=== PATIENT | female | born 1940 | race Caucasian/White ===

== ENCOUNTER → 2017-05-15 | Outpatient (CLI) | payer OTHER ==
[~2017-05-15] MED LIST: ASPI81TA28 PO; LORA-741 PO; MULT-506 PO; PANT40TA PO; QUET1TAB32 PO; QUET1TAB91 PO; SERT1TAB92 PO
== END ==
LOC: C.LABUPBEA 10:07
PROVIDERS: ATTEND Nurse Practitioner Family
DX: Z87.828 Personal history of other (healed) physical injury and trauma (principal)

== ENCOUNTER → 2017-05-30 | Outpatient (CLI) | payer OTHER ==
[2017-05-30 10:19] LABS: URINE APPEARANCE TURBID (CLEAR); URINE BILIRUBIN NEG (NEG); URINE COLOR YELLOW; URINE NITRITE POS (NEG); URINE PH >= 9.0 (4.5-7.5); URINE SPECIFIC GRAVITY 1.019 (1.000-1.030); UROBILINOGEN NEG (NEG)
[2017-05-30 10:30] LABS: MANUAL MICROSCOPIC REQUIRED? NO; REVIEW REQ? NO; SULFASALICYLIC ACID POS (NEG)
== END ==
LOC: C.LABUPBEA 09:24
PROVIDERS: ATTEND Nurse Practitioner Family
DX: R82.5 Elevated urine levels of drugs, medicaments and biological substances (principal)

== ENCOUNTER → 2017-05-31 | Outpatient (CLI) | payer OTHER ==
[2017-05-31 09:08] LABS: HEMATOCRIT 39.4 % (37-47); MEAN CELL VOLUME 84.2 fL (80-100); MEAN CORPUSCULAR HEMOGLOBIN 28.2 pg (25-34); MEAN CORPUSCULAR HGB CONC 33.5 g/dl (32-36); MEAN PLATELET VOLUME 10.5 fL (7.4-10.4); PLATELET COUNT 256 K/uL (130-400); RED BLOOD COUNT 4.68 M/uL (4.2-5.4); WHITE BLOOD COUNT 6.57 K/uL (4.8-10.8)
[2017-05-31 09:18] LABS: ALT/SGPT 18 U/L (12-78); BLOOD UREA NITROGEN 22 mg/dl (7-18); BUN/CREATININE RATIO 34.5 (10-20); CALCIUM 9.2 mg/dl (8.5-10.1); CARBON DIOXIDE 25 mmol/L (21-32); CHLORIDE 109 mmol/L (98-107); CREATININE 0.65 mg/dl (0.60-1.20); GLUCOSE 100 mg/dl (70-99); POTASSIUM 3.8 mmol/L (3.5-5.1); SODIUM 141 mmol/L (136-145)
[2017-05-31 09:21] LABS: ALB/GLOB RATIO 1.2 (0.9-2); ALKALINE PHOSPHATASE 88 U/L (45-117); AST/SGOT 10 U/L (15-37)
== END ==
LOC: C.LABUPBEA 08:41
PROVIDERS: ATTEND Nurse Practitioner Family
DX: M62.81 Muscle weakness (generalized) (principal); Z85.828 Personal history of other malignant neoplasm of skin

== ENCOUNTER → 2018-01-22 | Outpatient (CLI) | payer OTHER ==
[2018-01-22 09:47] LABS: BASO % 0.8 %; BASO ABS # 0.05 K/uL (0-0.2); EOS % 3.4 %; EOS ABS # 0.22 K/uL (0-0.5); HEMATOCRIT 39.9 % (37-47); HEMOGLOBIN 13.6 g/dL (12.0-16.0); IG# 0.01 K/uL (0.00-0.02); LYMPH % 22.5 %; LYMPH ABS # 1.45 K/uL (1.2-3.4); MEAN CELL VOLUME 83.3 fL (80-100); MEAN CORPUSCULAR HEMOGLOBIN 28.4 pg (25-34); MEAN CORPUSCULAR HGB CONC 34.1 g/dl (32-36); MEAN PLATELET VOLUME 10.8 fL (7.4-10.4); MONO % 6.8 %; MONO ABS # 0.44 K/uL (0.11-0.59); NEUT % 66.3 %; NEUT ABS # 4.28 K/uL (1.4-6.5); PLATELET COUNT 212 K/uL (130-400); RED CELL DISTRIBUTION WIDTH CV 14.7 % (11.5-14.5); RED CELL DISTRIBUTION WIDTH SD 45.2 fL (36.4-46.3); WHITE BLOOD COUNT 6.45 K/uL (4.8-10.8)
[2018-01-22 10:22] LABS: CREATININE 0.72 mg/dl (0.60-1.20); GLUCOSE 97 mg/dl (70-99)
[2018-01-22 11:52] LABS: HEMOGLOBIN A1C 5.5 % (4.5-5.6)
[2018-01-22 12:27] LABS: ALBUMIN 3.3 gm/dl (3.4-5.0); ALKALINE PHOSPHATASE 111 U/L (45-117); ALT/SGPT 28 U/L (12-78); AST/SGOT 14 U/L (15-37); BLOOD UREA NITROGEN 24 mg/dl (7-18); CALCIUM 8.6 mg/dl (8.5-10.1); CARBON DIOXIDE 24 mmol/L (21-32); SODIUM 141 mmol/L (136-145); TOTAL PROTEIN 6.2 gm/dl (6.4-8.2)
== END ==
LOC: C.LABUPBEA 09:16
PROVIDERS: ATTEND Nurse Practitioner Family
DX: M62.81 Muscle weakness (generalized) (principal); M18.0 Bilateral primary osteoarthritis of first carpometacarpal joints

== ENCOUNTER → 2018-04-22 | Outpatient (CLI) | payer OTHER ==
[2018-04-22 10:12] LABS: ALBUMIN 3.1 gm/dl (3.4-5.0); ALKALINE PHOSPHATASE 114 U/L (45-117); ALT/SGPT 33 U/L (12-78); AST/SGOT 21 U/L (15-37); BLOOD UREA NITROGEN 20 mg/dl (7-18); CALCIUM 8.7 mg/dl (8.5-10.1); CARBON DIOXIDE 23 mmol/L (21-32); CREATININE 0.61 mg/dl (0.60-1.20); GLUCOSE 95 mg/dl (70-99); POTASSIUM 3.7 mmol/L (3.5-5.1); SODIUM 140 mmol/L (136-145)
== END ==
LOC: C.LABUPBEA 09:23
PROVIDERS: ATTEND Nurse Practitioner Family
DX: Z87.828 Personal history of other (healed) physical injury and trauma (principal)

== ENCOUNTER 2019-12-10 14:38 | Inpatient (IN) ==
[2019-12-10] MEDS ORDERED: SODIUM CHLORIDE 0.9% 1000ML 1,000 ML IV ONE (15:05)
--- NOTE | 2019-12-10 15:12 | Emergency Department Note ---
Impression & Plan Pulmonary embolism, Acute respiratory failure with hypoxia, Non-STEMI (non-ST elevated myocardial infarction), Syncope ED Provider Note Provider: Chris Baires MD DATE OF SERVICE: 12/10/2019 CHIEF COMPLAINT: Syncope HISTORY OF PRESENT ILLNESS: Patient is a 79-year-old female presenting via am bulance today with a past medical history of Alzheimer's disease, depression, osteoporosis, diverticulitis per review of the medical record after reported syncopal event today. Evidently this morning while bathing patient became quite pale reported by EMS as a syncopal event and with a left-sided facial droop. Upon arrival here patient's unable to provide significant history. Patient's later arrives and states he has not seen her in several weeks due to the lockdown at the facility with the viral outbreak. He does state the patient seems in her neurological mental status at baseline but is not normally on oxygen. REVIEW OF SYSTEMS: Limited secondary to mental status PAST MEDICAL HISTORY: As noted above MEDICATIONS: Reviewed nursing notes and [facility] medication administration records SOCIAL HISTORY: , lives in longterm facility PHYSICAL EXAM: GENERAL: alert to verbal stimuli, not following commands, nonsensical speech at times. Head: normocephalic and atraumatic EYES: No injection, discharge or icterus. PERRL, EOMI. NECK: Trachea midline. Supple. ENT: Mucous membranes pink and moist. LUNGS: Airway patent. No retractions. Breath sounds present bilaterally anteriorly, mildly tachypneic HEART: Tachycardic rate and regular rhythm. No chest wall tenderness ABDOMEN: Soft and non-tender, without guarding or rebound. SKIN: Acyanotic, warm, dry, without significant rash EXTREMITIES: Without swelling, tenderness or deformity NEUROLOGICAL: withdraws to pain in all 4 extremities. Do not grossly appreciate a facial droop. Does not follow commands. EKG: Sinus tachycardia rate of 110. No acute ST segment elevations notable with some baseline artifact. No PVC notable. In comparison to previous from July [id number] more tachycardic CONTINUOUS CARDIAC MONITORING: was ordered and showed a heart rate of 108 bpm in sinus tachycardia Patient's hypertension was referred to the hospitalist [facility] COURSE: 1455 Patient was first seen and H&P performed. 1510 See at bedside with now present. 1650 Patient reassessed and updated. [facility] hospitalist paged. Patient's laboratory studies and imaging reviewed. Differential includes Infection, dehydration, metabolic abnormality, hypo/hyperglycemia, electrolyte disturbance, anemia, hypoxia, cardiac sources, intracerebral event, toxicologic, neurologic, as well as other pathologies. IMPRESSION/MEDICAL DECISION MAKING: Patient presents with new significant oxygen requirement and 10-15 L nonrebreather. Single episode reported earlier. History of TIA reported by and reported left facial droop earlier. Very difficult to examine the patient due to her underlying dementia and lack of ability to follow commands. Do not grossly appreciate a facial droop but again it is hard to truly know. CT the head and CT angiograms of the head and neck were complete as well as the chest to exclude PE. EKG basic labs lactate and blood cultures were sent. Urinalysis was ordered. Could be infectious or metabolic as well. Influenza testing was sent. Patient mildly tachypneic and tachycardic. Did receive initial IV fluid bolus. Mild leukocytosis. Patient 's and pulsed indicates the patient would not want intubation or CPR. Patient has no travel risk factors are significant exposure risk factors for coronavirus at this time. Patient does have a history of traumatic it sounds like subdural hematoma several years ago. Head CT without acute intracranial bleed although some moderate increased dilation of the ventricles is noted. Patient's head and neck vascular size evidence of acute occlusion. CT of the chest however significantly shows a large saddle PE with extensive bilateral PEs noted with right heart strain. Doubt pneumonia with this finding. Patient does have a positive troponin -- likely heart strain 2/2 PE. Procalcitonin undetectable with negative flu believe this is less infectious and all related to possible PE. He does not mobilize very well and this could be secondary to that. Discussed with patient's who was present given her decreased cognitive status secondary to dementia. At this time after discussion of the risks and benefits of various therapies including TPA, heparin, and palliative options the patient would not want heroic or life saving measures such as TPA, CPR, or mechanical ventilation. We will proceed with heparinization for now to see if the patient rallies and will recover from this with additional support of oxygen. He () understood the risks that she could acutely decompensate and that this is a life threatening process. [facility] hospitalist was contacted. Patient's head CT findings can be addressed later if the patient acutely survives this large pulmonary embolism. DIAGNOSIS: Saddle pulmonary embolism, elevated troponin, hypoxia, acute respiratory failure DISPOSITION: Hospitalist will evaluate Patient was agreeable with this plan. Discussed return precautions and advised follow up. I have personally spent 33 minutes of critical care time in the direct management of this patient. This includes bedside care, interpretation of diagnostic studies, and testing, discussion with consultants, patient, and family members, and other required patient management activities. These 33 minutes is in excess of all separately billable procedures. Past Med/Surg History Medical History (Updated 12/10/19 @ 18:38 by Chris Baires M.D.) Alzheimer's disease (Chronic) Anxiety Depression (Chronic) Subdural hematoma, post-traumatic Surgical History (Updated 12/10/19 @ 18:03 by Negar Núñez PA-C) History of appendectomy (Chronic Unknown) "incidental " History of craniotomy Family History (Updated 12/10/19 @ 18:06 by Negar Núñez PA-C) Other Family history non-contributory Social History (Updated 12/10/19 @ 18:07 by Negar Núñez PA-C) Smoking Status: Never smoker Hx Alcohol Use: No Hx Substance Use: No Allergies Allergies Allergy/AdvReac Type Severity Reaction Status Date / Time Penicillins Allergy Unknown . Verified 12/10/19 15:40 tramadol AdvReac Intermediate UPSET Verified 12/10/19 15:40 STOMACH AND VOMITING donepezil AdvReac Unknown agitation Verified 12/10/19 15:40 / delirium memantine AdvReac Unknown delirium Verified 12/10/19 15:40 Home Meds Home Medications Medication Instructions Recorded Confirmed acetaminophen 650 mg PO Q6H PRN MDD 3 GMS 12/10/19 12/10/19 APAP/24 HOURS bisacodyl [Dulcolax (bisacodyl)] 10 mg OH DAILY PRN 12/10/19 12/10/19 chlorhexidine gluconate [Peridex] 5 ml BUCCAL BID 12/10/19 12/10/19 cholecalciferol (vitamin D3) 5,000 unit PO DAILY 12/10/19 12/10/19 [Vitamin D3] magnesium hydroxide [Milk Of 10 ml PO DAILY PRN 12/10/19 12/10/19 Magnesia Concentrated] mineral oil [Fleet Mineral Oil] 118 ml [place] DAILY PRN 12/10/19 12/10/19 [id number] 1 tab PO DAILY 12/10/19 12/10/19 [Therapeutic-M] omeprazole 20 mg PO Q2D 12/10/19 12/10/19 polyethylene glycol 3350 17 g PO Q24H PRN 12/10/19 12/10/19 potassium chloride 20 meq PO DAILY 12/10/19 12/10/19 sertraline 50 mg PO DAILY 12/10/19 12/10/19 Results & Data (ED) Vital Signs Vital Signs - 24 hr 12/10/19 14:48 12/10/19 14:52 12/10/19 14:58 Temperature 37.3 C Temperature Source Rectal Pulse Rate 106 H 112 H 105 H Pulse Rate from SpO2 Sensor 106 H 106 H Respiratory Rate 33 H 24 33 H Blood Pressure 101/67 101/67 Blood Pressure Mean 81 78 Pulse Oximetry 90 82 L 90 Oxygen Delivery Method Room Air Oxygen Flow Rate Sepsis Recent Fever Within 48 Hours No Sepsis New/Unexplained Change in Mental Status No Sepsis Action Taken by Nursing No Action Required 12/10/19 15:00 12/10/19 15:01 12/10/19 15:05 Temperature Temperature Source Pulse Rate 111 H 105 H Pulse Rate from SpO2 Sensor 109 H 104 H Respiratory Rate 33 H 31 H Blood Pressure 118/77 Blood Pressure Mean 87 Pulse Oximetry 90 91 91 Oxygen Delivery Method Non-rebreather Oxygen Flow Rate 10 Sepsis Recent Fever Within 48 Hours Sepsis New/Unexplained Change in Mental Status Sepsis Action Taken by Nursing 12/10/19 15:10 12/10/19 15:20 12/10/19 15:30 Temperature Temperature Source Pulse Rate 108 H 109 H 108 H Pulse Rate from SpO2 Sensor 110 H 108 H 108 H Respiratory Rate 25 H 29 H 31 H Blood Pressure Blood Pressure Mean Pulse Oximetry 90 88 L 92 Oxygen Delivery Method Oxygen Flow Rate Sepsis Recent Fever Within 48 Hours Sepsis New/Unexplained Change in Mental Status Sepsis Action Taken by Nursing 12/10/19 15:34 12/10/19 15:40 12/10/19 15:50 Temperature Temperature Source Pulse Rate 105 H 105 H 105 H Pulse Rate from SpO2 Sensor 105 H 106 H 105 H Respiratory Rate 30 H 30 H 33 H Blood Pressure 119/49 L Blood Pressure Mean 93 Pulse Oximetry 91 90 90 Oxygen Delivery Method Non-rebreather Oxygen Flow Rate Sepsis Recent Fever Within 48 Hours Sepsis New/Unexplained Change in Mental Status Sepsis Action Taken by Nursing 12/10/19 16:00 12/10/19 16:21 12/10/19 16:30 Temperature Temperature Source Pulse Rate 112 H 190 H Pulse Rate from SpO2 Sensor 106 H 102 H 104 H Respiratory Rate 29 H 26 H 26 H Blood Pressure 120/91 Blood Pressure Mean 97 Pulse Oximetry 90 90 96 Oxygen Delivery Method Non-rebreather Oxygen Flow Rate 15 Sepsis Recent Fever Within 48 Hours Sepsis New/Unexplained Change in Mental Status Sepsis Action Taken by Nursing 12/10/19 16:31 12/10/19 16:40 12/10/19 16:50 Temperature Temperature Source Pulse Rate 152 H 105 H 105 H Pulse Rate from SpO2 Sensor 103 H 105 H 106 H Respiratory Rate 27 H 26 H 30 H Blood Pressure Blood Pressure Mean Pulse Oximetry 95 95 94 Oxygen Delivery Method Oxygen Flow Rate Sepsis Recent Fever Within 48 Hours Sepsis New/Unexplained Change in Mental Status Sepsis Action Taken by Nursing 12/10/19 17:00 12/10/19 17:01 12/10/19 17:10 Temperature Temperature Source Pulse Rate 106 H 107 H 106 H Pulse Rate from SpO2 Sensor 109 H 107 H 107 H Respiratory Rate 24 22 25 H Blood Pressure 107/78 Blood Pressure Mean 86 Pulse Oximetry 95 95 96 Oxygen Delivery Method Oxygen Flow Rate Sepsis Recent Fever Within 48 Hours Sepsis New/Unexplained Change in Mental Status Sepsis Action Taken by Nursing 12/10/19 17:20 12/10/19 17:30 12/10/19 17:40 Temperature Temperature Source Pulse Rate 108 H 110 H 109 H Pulse Rate from SpO2 Sensor 108 H 110 H 110 H Respiratory Rate 25 H 24 18 Blood Pressure 108/79 Blood Pressure Mean 88 Pulse Oximetry 96 96 95 Oxygen Delivery Method Non-rebreather Oxygen Flow Rate 15 Sepsis Recent Fever Within 48 Hours Sepsis New/Unexplained Change in Mental Status Sepsis Action Taken by Nursing 12/10/19 17:50 12/10/19 18:12 Temperature Temperature Source Pulse Rate 108 H Pulse Rate from SpO2 Sensor 109 H Respiratory Rate 25 H Blood Pressure Blood Pressure Mean Pulse Oximetry 96 Oxygen Delivery Method Non-rebreather Oxygen Flow Rate 15 Sepsis Recent Fever Within 48 Hours Sepsis New/Unexplained Change in Mental Status Sepsis Action Taken by Nursing Laboratory Data Result diagrams: 12/10/19 15:23 12/10/19 15:23 Lab Results 12/10/19 12/10/19 12/10/19 Range/Units 15:23 15:23 15:23 WBC 11.55 H (4.8-10.8) K/uL RBC 5.37 (4.2-5.4) M/uL Hgb 16.0 (12.0-16.0) g/dL Hct 46.9 (37-47) % MCV 87.3 (80-100) fL MCH 29.8 (25-34) pg MCHC 34.1 (32-36) g/dL RDW Std Deviation 45.7 (36.4-46.3) fL RDW Coeff of Yaw 14.3 (11.5-14.5) % Plt Count 240 (130-400) K/uL MPV 10.8 H (7.4-10.4) fL Immature Gran % (Auto) 0.3 % Neut % (Auto) 85.3 % Lymph % (Auto) 6.8 % [place] % (Auto) 6.4 % Eos % (Auto) 0.9 % Baso % (Auto) 0.3 % Immature Gran # (Auto) 0.03 H (0.00-0.02) K/uL Neut # (Auto) 9.86 H (1.4-6.5) K/uL Lymph # (Auto) 0.78 L (1.2-3.4) K/uL [place] # (Auto) 0.74 H (0.11-0.59) K/uL Eos # (Auto) 0.10 (0-0.5) K/uL Baso # (Auto) 0.04 (0-0.2) K/uL PT 11.0 (9.0-12.0) Seconds INR 1.0 (0.9-1.1) APTT 29.1 (21.0-31.0) Seconds PTT Ratio 1.0 Sodium 142 (136-145) mmol/L Potassium 4.1 (3.5-5.1) mmol/L Chloride 110 H (98-107) mmol/L Carbon Dioxide 30 (21-32) mmol/L Anion Gap 2.0 L (3-11) BUN 26 H (7-18) mg/dl Creatinine 0.72 (0.6-1.2) mg/dl Est Cr Clr Drug Dosing Not Reportable Est GFR ( Amer) 91.7 Est GFR (Non-Af Amer) 79.1 BUN/Creatinine Ratio 36.5 H (10-20) Glucose 144 H (70-99) mg/dl Lactate (0.4-2.0) mmol/L Calcium 9.8 (8.5-10.1) mg/dl Magnesium 2.2 (1.8-2.4) mg/dl Total Bilirubin 0.6 (0.2-1) mg/dl AST 18 (15-37) U/L ALT 33 (12-78) U/L Alkaline Phosphatase 122 H (45-117) U/L Troponin I 0.664 H* (0-0.045) ng/ml NT-Pro-B Natriuret Pep 141 (0-1800) pg/ml Total Protein 7.1 (6.4-8.2) gm/dl Albumin 3.5 (3.4-5.0) gm/dl Globulin 3.6 (2.5-4.0) gm/dl Albumin/Globulin Ratio 1.0 (0.9-2) Lipase 79 (73-393) U/L Procalcitonin (0-0.5) ng/ml TSH 2.180 (0.300-4.500) uIu/ml Influenza Type A (PCR) (Neg) Influenza Type B (PCR) (Neg) 12/10/19 12/10/19 12/10/19 Range/Units 15:23 15:27 15:30 WBC (4.8-10.8) K/uL RBC (4.2-5.4) M/uL Hgb (12.0-16.0) g/dL Hct (37-47) % MCV (80-100) fL MCH (25-34) pg MCHC (32-36) g/dL RDW Std Deviation (36.4-46.3) fL RDW Coeff of Yaw (11.5-14.5) % Plt Count (130-400) K/uL MPV (7.4-10.4) fL Immature Gran % (Auto) % Neut % (Auto) % Lymph % (Auto) % [place] % (Auto) % Eos % (Auto) % Baso % (Auto) % Immature Gran # (Auto) (0.00-0.02) K/uL Neut # (Auto) (1.4-6.5) K/uL Lymph # (Auto) (1.2-3.4) K/uL [place] # (Auto) (0.11-0.59) K/uL Eos # (Auto) (0-0.5) K/uL Baso # (Auto) (0-0.2) K/uL PT (9.0-12.0) Seconds INR (0.9-1.1) APTT (21.0-31.0) Seconds PTT Ratio Sodium (136-145) mmol/L Potassium (3.5-5.1) mmol/L Chloride (98-107) mmol/L Carbon Dioxide (21-32) mmol/L Anion Gap (3-11) BUN (7-18) mg/dl Creatinine (0.6-1.2) mg/dl Est Cr Clr Drug Dosing Est GFR ( Amer) Est GFR (Non-Af Amer) BUN/Creatinine Ratio (10-20) Glucose (70-99) mg/dl Lactate 2.0 (0.4-2.0) mmol/L Calcium (8.5-10.1) mg/dl Magnesium (1.8-2.4) mg/dl Total Bilirubin (0.2-1) mg/dl AST (15-37) U/L ALT (12-78) U/L Alkaline Phosphatase (45-117) U/L Troponin I (0-0.045) ng/ml NT-Pro-B Natriuret Pep (0-1800) pg/ml Total Protein (6.4-8.2) gm/dl Albumin (3.4-5.0) gm/dl Globulin (2.5-4.0) gm/dl Albumin/Globulin Ratio (0.9-2) Lipase (73-393) U/L Procalcitonin < 0.05 (0-0.5) ng/ml TSH (0.300-4.500) uIu/ml Influenza Type A (PCR) Neg for Influ A (Neg) Influenza Type B (PCR) Neg for Influ B (Neg) Administered Medications Heparin Sodium/Dextrose (Heparin Sodium/Dextrose) 25,000 units in 500 mls @ 26 mls/hr IV .[id number] [facility]; Protocol Stop: 01/09/20 16:59 Last Admin: 12/10/19 17:22 Dose: 1,300 units/hr, 26 mls/hr Documented by: [id number] Cosigned by: [id number] Ioversol (Optiray 320 125ml) 120 ml IV ONCE PRN PRN Reason: Interaction Checking Stop: 12/14/19 16:09 Last Admin: 12/10/19 16:11 Dose: 120 ml Documented by: [id number] Discontinued Medications Heparin Sodium (Porcine) (Heparin Iv Bolus) Confirm Administered Dose 10,000 units .ROUTE .STK-MED ONE Stop: 12/10/19 17:15 Last Admin: 12/10/19 17:20 Dose: 6,000 units Documented by: [id number] Cosigned by: [id number] Heparin Sodium/Dextrose () 1 ea IV NOW STA; Protocol Stop: 12/10/19 16:54 Last Admin: 12/10/19 17:23 Dose: Not Given Documented by: [id number] Sodium Chloride (Nss 1000ml) 1,000 mls @ 999 mls/hr IV .[id number] ONE Stop: 12/10/19 16:05 Last Infusion: 12/10/19 17:23 Dose: 0 mls/hr Documented by: [id number] Admin: 12/10/19 15:44 Dose: 999 mls/hr Documented by: [id number] Morphine Sulfate (Morphine Sulfate) 1 mg IV NOW STA Stop: 12/10/19 17:54 Last Admin: 12/10/19 17:57 Dose: 1 mg Documented by: [id number] Discharge Plan Visit Data Chief Complaint: Syncope ED Provider: Chris Baires Discharge Problem: Pulmonary embolism, Acute respiratory failure with hypoxia, Non-STEMI (non-ST elevated myocardial infarction), Syncope Patient Disposition: Being Evaluated by Hospitalist Condition: Serious Discharge Instructions Interventions: ED Discharge Assessment Last Done: 12/10/19 18:12
[2019-12-10 15:37] LABS: Basophils # (auto) 0.04 K/uL (0-0.2); Basophils % (auto) 0.3 %; Eosinophils % (auto) 0.9 %; Hematocrit (blood only) 46.9 % (37-47); Immature Granulocytes # (auto) 0.03 K/uL (0.00-0.02); Immature Granulocytes % (auto) 0.3 %; Lymphocytes # (auto) 0.78 K/uL (1.2-3.4); Lymphocytes % (auto) 6.8 %; Mean Corpuscular Hemoglobin 29.8 pg (25-34); Mean Corpuscular Hgb Conc 34.1 g/dL (32-36); Mean Corpuscular Volume 87.3 fL (80-100); Mean Platelet Volume 10.8 fL (7.4-10.4); Monocytes # (auto) 0.74 K/uL (0.11-0.59); Monocytes % (auto) 6.4 %; Neutrophils # (auto) 9.86 K/uL (1.4-6.5); Neutrophils % (auto) 85.3 %; Platelet Count 240 K/uL (130-400); RDW Coefficient of Variation 14.3 % (11.5-14.5); RDW Standard Deviation 45.7 fL (36.4-46.3); Red Blood Count 5.37 M/uL (4.2-5.4); White Blood Count 11.55 K/uL (4.8-10.8)
--- NOTE | 2019-12-10 15:38 | Electrocardiogram Report ---
Test Reason : Blood Pressure : / mmHG Vent. Rate : 110 BPM Atrial Rate : 110 BPM P-R Int : 164 ms QRS Dur : 086 ms QT Int : 326 ms P-R-T Axes : 036 -76 070 degrees QTc Int : 441 ms Poor data quality, interpretation may be adversely affected Atrial fibrillation with rapid ventricular response Left axis deviation Low voltage QRS Cannot rule out Anterior infarct , age undetermined Abnormal ECG When compared with ECG of 31-JUL-2016 13:47, Minimal criteria for Anterior infarct are now Present Nonspecific T wave abnormality no longer evident in Inferior leads Nonspecific T wave abnormality no longer evident in Anterior leads Confirmed by Atif Hay ([id number]) on 12/10/2019 3:38:11 PM Referred By: [facility] Confirmed By:Atif Hay
[2019-12-10 15:48] LABS: Partial Thromboplastin Time 29.1 Seconds (21.0-31.0)
--- NOTE | 2019-12-10 15:57 | XRay Report ---
XR chest 1V portable CLINICAL HISTORY: sob dyspnea COMPARISON STUDY: 07/31/2016 FINDINGS: Small parenchymal infiltrate left base. Lungs otherwise appear clear. Mild tortuosity thora cic aorta. IMPRESSION: Small parenchymal infiltrate left base. ACT 112: Negative or not required by law. The above report was generated using voice recognition software. It may contain grammatical, syntax or spelling errors. Electronically signed by: Chilo Pollack M.D. 12/10/2019 3:56 PM
[2019-12-10 15:58] LABS: Alanine Aminotransferase 33 U/L (12-78); Albumin Level 3.5 gm/dl (3.4-5.0); Aspartate Aminotransferase 18 U/L (15-37); BUN Creatinine Ratio 36.5 (10-20); Blood Urea Nitrogen 26 mg/dl (7-18); Calcium 9.8 mg/dl (8.5-10.1); Carbon Dioxide 30 mmol/L (21-32); Chloride 110 mmol/L (98-107); Est GFR (African American) 91.7; Est GFR (Non-African American) 79.1; Glucose 144 mg/dl (70-99); Lipase 79 U/L (73-393); Magnesium 2.2 mg/dl (1.8-2.4); Potassium 4.1 mmol/L (3.5-5.1); Sodium 142 mmol/L (136-145)
[2019-12-10] MEDS ORDERED: OPTIRAY 320 125ml IV PRN (16:10)
[2019-12-10 16:21] LABS: Alkaline Phosphatase 122 U/L (45-117); Bilirubin,Total 0.6 mg/dl (0.2-1); Globulin 3.6 gm/dl (2.5-4.0); Total Protein 7.1 gm/dl (6.4-8.2); Troponin I 0.664 ng/ml (0-0.045)
--- NOTE | 2019-12-10 16:29 | CT Scan Report ---
HEAD CT NONCONTRAST CT DOSE: HISTORY: syncope, weakness TECHNIQUE: Multiaxial CT images of the head were performed without the use of intravenous contrast. A utomated exposure control was utilized for this study. A dose lowering technique was utilized adheri ng to the principles of ALARA. Comparison: Head CT 07/31/2016. Findings: The paranasal sinuses and mastoid air cells are clear. The calvarium and skull base are int act. There is no mass, hematoma, midline shift, acute infarct. White matter hypodensity is nonspecifi c but suggestive of microvascular ischemic change. Moderate dilatation of the lateral ventricles whic h has progressed. This is greater than expected for the sulcal effacement and could represent a devel oping hydrocephalus or normal pressure hydrocephalus. This appears to have progressed in the interval . Right-sided craniotomy changes are noted. Impression: 1. No acute infarct. 2. No intracranial hemorrhage. 3. Moderate dilatation of the lateral ventricles which has progressed. This is greater than expected for the sulcal effacement and could represent a developing hydrocephalus or normal pressure hydroceph alus. This appears to have progressed in the interval. ACT 112: Negative or not required by law. Electronically signed by: Rivas Veloz M.D. 12/10/2019 4:23 PM
[2019-12-10 16:30] LABS: Influenza A virus by PCR Neg for Influ A (Neg); Influenza B virus by PCR Neg for Influ B (Neg)
--- NOTE | 2019-12-10 16:32 | CT Scan Report ---
CHEST CTA for PULMONARY ARTERIES CT DOSE: 1700.60 mGy.cm HISTORY: PE, hypoxia syncope TECHNIQUE: Multiaxial CT images of the chest were performed following the intravenous administration of contrast to evaluate the pulmonary arteries. Maximal intensity projection images were also obtaine d. A dose lowering technique was utilized adhering to the principles of ALARA. COMPARISON STUDY: Chest 12/10/2019. FINDINGS: Normal caliber thoracic aorta with no evidence for dissection. Extensive bilateral pulmonar y emboli involving the majority of the pulmonary arteries including a saddle embolus. There is extens angélica right-sided heart strain. There is also a large amount of embolus within the right main pulmonary artery. No pleural or pericardial effusions. No suspicious lytic are blastic osseous lesions. Limite d views of the upper abdomen demonstrate a normal liver, spleen, and adrenal glands. Normal esophagus . No mediastinal or hilar lymphadenopathy. The central airways are patent. No pneumothorax. No focal lung consolidations to suggest pneumonia or pulmonary infarcts at this time. IMPRESSION: 1. Extensive bilateral pulmonary emboli including a saddle embolus and extensive right-sided heart st rain. 2. These findings were discussed with the patient's dishcloth folder, Christine Salamanca, at 4:30 PM on 12/10/2019. ACT 112: Negative or not required by law. Electronically signed by: Rivas Veloz M.D. 12/10/2019 4:31 PM
--- NOTE | 2019-12-10 16:34 | CT Scan Report ---
CT angio neck with con HISTORY: Mental status change syncope TECHNIQUE: Multiaxial CT angiography of the neck was performed IV contrast: 100 cc nonionic All jewell urements were calculated based on NASCET criteria. Maximum intensity projection images were also obt ained. A dose lowering technique was utilized adhering to the principles of ALARA. COMPARISON STUDY: None. FINDINGS: The aortic arch and proximal great vessels are widely patent. There is no significant sten osis, occlusion, or dissection identified within the bilateral common carotid, internal carotid, or v ertebral arteries. IMPRESSION: No significant stenosis, occlusion, or dissection identified within the carotid or vertebral arteries . ACT 112: Negative or not required by law. The above report was generated using voice recognition software. It may contain grammatical, syntax or spelling errors. Electronically signed by: Chilo Pollack M.D. 12/10/2019 4:33 PM
--- NOTE | 2019-12-10 16:38 | CT Scan Report ---
HEAD CTA HISTORY: syncope, weakness TECHNIQUE: Multiaxial CT images of the head were performed both before and after the intravenous admi nistration of contrast to evaluate the major cerebral vessels. Maximum intensity projection images we re also obtained. A dose lowering technique was utilized adhering to the principles of ALARA. COMPARISON: None. FINDINGS: Redemonstration of the moderate hydrocephalus. No hematoma or acute infarct. Visualized int racranial internal carotid arteries, distal vertebral arteries, and basilar artery are widely patent. There is no significant stenosis, occlusion, or aneurysm seen within the bilateral ACAs, MCAs, or PC As. IMPRESSION: 1. No significant stenosis, occlusion, or aneurysm within the [place] of [place]. 2. Moderate hydrocephalus is again noted. ACT 112: Negative or not required by law. Electronically signed by: Rivas Veloz M.D. 12/10/2019 4:36 PM
[2019-12-10] MEDS ORDERED: HEPARIN SODIUM/DEXTROSE 25,000 UNITS/500 ML BAG IV SCH (17:00)
[2019-12-10 17:04] LABS: NT Pro B Type Natriuretic Pept 141 pg/ml (0-1800)
[2019-12-10] MEDS ORDERED: HEPARIN SOD (PORCINE) 1000 UNIT/ML 10 ML VIAL ONE (17:14)
[2019-12-10] MEDS ORDERED: MoRPHine SULFATE 2 MG/ML CARP IV STA (17:53)
--- NOTE | 2019-12-10 17:54 | History & Physical Report ---
Date of Service December 10, 2019 Assessment & Plan (1) Saddle pulmonary embolus: Pt is 79 y/o F with PMH Alzheimer dementia, depression, anxiety, h/o subdural hematoma after fall s/p craniotomy in 2015 presented to ER from [facility] for reported syncope today while bathing pt, pt was found to be hypoxic and sent to ER. In ER pt found to be tachycardic, hypoxic 82% on RA, tachypneic with RR: 24. She was found to have Extensive bilateral pulmonary emboli including a saddle embolus and extensive right-sided heart strain on CTA chest. Discussion with pt's about diagnosis and pt's current medical state, and denies TPA or other invasive procedures, and is aware of pt's poor prognosis. Pt DNR/DNI. Wants to try Heparin. Wants pt to be comfortable. Heparin IV started in ER Continue Heparin IV Supplemental oxygen Morphine prn NPO for now Consult palliative care (2) Alzheimer's disease: reports pt seems to be at baseline mental status DVT Prophylaxis -On IV Heparin Disposition admit PCU DNR/DNI as per discussion with pt's Pt , Marco Costa. Pt daughter, Zahira Arana. Spoke with clinical coordinator and pt's and daughter would be able to visit pt. Pt was seen and care coordinated with Dr Quiñones. See addendum History of Present Illness Chief Complaint: Syncope Primary Care Provider: [facility] Pt is 79 y/o F with PMH Alzheimer dementia, depression, anxiety, h/o subdural hematoma after fall s/p craniotomy in 2016 presented to ER from [facility] for reported syncope. History obtained from ER staff and patient's secondary to patient's mental status. Patient's reports patient significant dementia and typically does not recognize him. Reports patient is primarily wheelchair bound. It is reported by staff that pt was being bathed today when she became pale and had syncopal event. It was also noted pt to be hypoxic. Staff had concern pt may have left-sided facial droop and was transported to ER via EMS. No h/o lung disorder or oxygen requirement in past. No known h/o DVT or PE in past. No known other recent injury/trauma, no recent procedures. In ER pt found to be tachycardic, hypoxic 82% on RA, tachypneic with RR: 24. She was found to have Extensive bilateral pulmonary emboli including a saddle embolus and extensive right-sided heart strain on CTA chest. ER discussed with pt's who denies TPA or other invasive procedures. Allergies Allergy/AdvReac Type Severity Reaction Status Date / Time Penicillins Allergy Unknown . Verified 12/10/19 15:40 tramadol AdvReac Intermediate UPSET Verified 12/10/19 15:40 STOMACH AND VOMITING donepezil AdvReac Unknown agitation Verified 12/10/19 15:40 / delirium memantine AdvReac Unknown delirium Verified 12/10/19 15:40 Home Medications Home Medications Medication Instructions Recorded Confirmed Type acetaminophen 650 mg PO Q6H PRN MDD 3 GMS 12/10/19 12/10/19 History APAP/24 HOURS bisacodyl [Dulcolax (bisacodyl)] 10 mg [place] DAILY PRN 12/10/19 12/10/19 History chlorhexidine gluconate [Peridex] 5 ml BUCCAL BID 12/10/19 12/10/19 History cholecalciferol (vitamin D3) 5,000 unit PO DAILY 12/10/19 12/10/19 History [Vitamin D3] magnesium hydroxide [Milk Of 10 ml PO DAILY PRN 12/10/19 12/10/19 History Magnesia Concentrated] mineral oil [Fleet Mineral Oil] 118 ml [place] DAILY PRN 12/10/19 12/10/19 History egbwqexp-svzg-TU-calcium-mins 1 tab PO DAILY 12/10/19 12/10/19 History [Therapeutic-M] omeprazole 20 mg PO Q2D 12/10/19 12/10/19 History polyethylene glycol 3350 17 g PO Q24H PRN 12/10/19 12/10/19 History potassium chloride 20 meq PO DAILY 12/10/19 12/10/19 History sertraline 50 mg PO DAILY 12/10/19 12/10/19 History Past Med/Surg History Medical History (Updated 12/10/19 @ 18:38 by Chris Baires M.D.) Alzheimer's disease (Chronic) Anxiety Depression (Chronic) Subdural hematoma, post-traumatic Surgical History (Updated 04/01/20 @ 18:03 by Negar Núñez PA-C) History of appendectomy (Chronic Unknown) "incidental " History of craniotomy Family History (Updated 12/10/19 @ 18:06 by Negar Núñez PA-C) Other Family history non-contributory Social History (Updated 12/10/19 @ 18:07 by Negar Núñez PA-C) Preferred Language: Sammarinese Communication Ability: Impaired Air Intelligence Officer Required: No Beliefs That Will Affect Care: None Current Living Situation: [facility] Smoking Status: Never smoker Hx Alcohol Use: No Hx Substance Use: No Review of Systems Review of Systems: Unobtainable due to cognitive status Physical Exam Physical Exam: General: Pt alert, WDWN Head: normocephalic, atraumatic Eyes: PERRL, EOM's intact, conjunctiva non-injected, anicteric ENT: normal inspection external ears, nose, mucous membranes mildly dry Neck: supple, trachea midline Lungs:RR: 24, no retractions, appear clear CV: tachycardia, rate 118, regular rhythm, no pretibial edema Abd: normal BS, soft, no apparent tenderness to palpation Ext: no cyanosis, no erythema or significant edema, +moaning with palpation anterior legs (providers hands cold to palpation), no apparent calf tenderness to palpation Neuro: alert, not oriented, intermittently anxious appearing however able to be easily consoled by her , no facial droop noted Skin: warm, dry Results & Data Results & Data ([facility]) Vital Signs (Past 12 Hours) Vital Signs Temp Pulse Resp BP Pulse Ox 12/10/19 17:01 107 H 22 95 12/10/19 17:00 106 H 24 107/78 95 12/10/19 16:50 105 H 30 H 94 12/10/19 16:40 105 H 26 H 95 12/10/19 16:31 152 H 27 H 95 12/10/19 16:30 190 H 26 H 120/91 96 12/10/19 16:21 112 H 26 H 90 12/10/19 16:00 29 H 90 12/10/19 15:50 105 H 33 H 90 12/10/19 15:40 105 H 30 H 90 12/10/19 15:34 105 H 30 H 119/49 L 91 12/10/19 15:30 108 H 31 H 92 12/10/19 15:20 109 H 29 H 88 L 12/10/19 15:10 108 H 25 H 90 12/10/19 15:05 91 12/10/19 15:01 105 H 31 H 91 12/10/19 15:00 111 H 33 H 118/77 90 12/10/19 14:58 105 H 33 H 90 12/10/19 14:52 37.3 C 112 H 24 101/67 82 L 12/10/19 14:48 106 H 33 H 101/67 90 Laboratory Results Short CBC 12/10/19 Range/Units 15:23 WBC 11.55 H (4.8-10.8) K/uL Hgb 16.0 (12.0-16.0) g/dL Hct 46.9 (37-47) % Plt Count 240 (130-400) K/uL BMP 12/10/19 15:23 Sodium 142 Potassium 4.1 Chloride 110 H Carbon Dioxide 30 BUN 26 H Creatinine 0.72 Glucose 144 H Calcium 9.8 Cardiac Enzymes 12/10/19 Range/Units 15:23 Troponin I 0.664 H* (0-0.045) ng/ml Liver Function 12/10/19 Range/Units 15:23 Total Bilirubin 0.6 (0.2-1) mg/dl AST 18 (15-37) U/L ALT 33 (12-78) U/L Alkaline Phosphatase 122 H (45-117) U/L Albumin 3.5 (3.4-5.0) gm/dl Diagnostic Findings CT HEAD: Impression: 1. No acute infarct. 2. No intracranial hemorrhage. 3. Moderate dilatation of the lateral ventricles which has progressed. This is greater than expected for the sulcal effacement and could represent a developing hydrocephalus or normal pressure hydrocephalus. This appears to have progressed in the interval. CTA HEAD: IMPRESSION: 1. No significant stenosis, occlusion, or aneurysm within the [place] of [place]. 2. Moderate hydrocephalus is again noted. CTA CHEST: IMPRESSION: 1. Extensive bilateral pulmonary emboli including a saddle embolus and extensive right-sided heart strain. CTA NECK: IMPRESSION: No significant stenosis, occlusion, or dissection identified within the carotid or vertebral arteries. CXR: IMPRESSION: Small parenchymal infiltrate left base. Supervising Physician Co-Signing Physician Notes ATTENDING ADDENDUM : pt seen and examined , care co ordinated with Negar Serrano this an elderly female with baseline dementia , multiple co morbidities ,admitted to after having a syncopal episode at long term pt found to be severely hypoxic 80% in RA , requiring NRB mask , tachycardic , tachypnic CTA of chest shows : extensive bilateral PE with saddle emboli , CT evidence of rt heart strain /large emboli at rt pulmonary artery Er physician Discussed the option of tPA with -who declined aggressive treatment and intervention aware of the poor prognosis and life threatening condition . Pt has POLST -which states DNR/DNI , no heroic measures , no aggressive measures Pt's willing to cont IV heparin for now , wants pt to be comfortable -no in pain or discomfort IV prn Mophine ordered in next 8-12 hrs if pts condition continues to decline , wants to transition to comfort care /hospice only and DC IV heparin Physical exam : gen : elderly female , anxious , appears to uncomfortable , pulling at NRB mask unable to verablize any specific pain or discomfort , except for mumbling words HEENT ; sclera non icteric dry oral mucosa Heart : tachycardic , no lower ext edema Lungs : diminished breath sound , no wheeze noted EXT; no edema neuro; grossly non focal , moving all extremities ,no facial droop , baseline advanced dementia unable to communicate or follow command ACUTE HYPOXEMIC RESPIRATORY FAILURE : due to Pulmonary embolism : bilateral extensive emboli - saddle emboli with lar ge emboli on rt pulm truck risk for thrombus : pt is non ambulatory at baseline -bed/wheelchair bound DNR/DNI , no heroic measures over all prognisis very poor updated at bedside Anna Quiñones MD
[2019-12-10] MEDS ORDERED: ONDANSETRON INJ 2 MG/ML 2 ML VIAL IV PRN ×2 (18:13→18:48)
[2019-12-10] MEDS ORDERED: ONDANSETRON 4 MG OD TAB SL PRN (18:13)
[2019-12-10] MEDS ORDERED: LORazepam 0.5 MG TAB PO PRN (18:13)
[2019-12-10] MEDS ORDERED: LORazepam 0.5 MG/1 ML VIAL IV PRN (18:13)
[2019-12-10] MEDS ORDERED: ATROPINE SULFATE 1% OP SOLN 2 ML BTL SL PRN (18:13)
[2019-12-10] MEDS ORDERED: NITROGLYCERIN SL 0.4 MG/TAB TAB SL PRN (18:48)
[2019-12-10] MEDS ORDERED: ACETAMINOPHEN 325 MG TAB PO PRN (18:48)
[2019-12-10] MEDS ORDERED: LORazepam 1 MG/2 ML VIAL IV PRN (18:48)
[2019-12-10 23:35] LABS: Partial Thromboplastin Ratio > 5.0
[2019-12-10 23:40] LABS: Partial Thromboplastin Time > 139.0 Seconds (21.0-31.0)
[2019-12-11 00:06] LABS: Appearance Urine Clear (Clear); Bacteria Urine Automated Negative (Negative); Bilirubin Urine Negative (Negative); Blood Urine 2+ (Negative); Color Urine Yellow; Epithelial Cell Urine Auto 0-5 /lpf (0-5); Glucose Urine UA Negative (Negative); Ketones Urine Negative (Negative); Leukocyte Esterase Urine 1+ (Negative); Nitrite Urine Negative (Negative); Protein Urine Negative (Negative); Specific Gravity Urine > 1.045 (1.000-1.030); Urobilinogen Urine Negative (Negative); WBC Urine Automated >30 /hpf (0-5); pH Urine 5.5 (4.5-7.5)
[2019-12-11 01:31] LABS: Partial Thromboplastin Ratio 3.5
[2019-12-11 01:36] LABS: Partial Thromboplastin Time 97.5 Seconds (21.0-31.0)
[2019-12-11 08:36] LABS: Partial Thromboplastin Ratio 3.4
[2019-12-11 09:03] LABS: Partial Thromboplastin Time 94.3 Seconds (21.0-31.0)
--- NOTE | 2019-12-11 12:18 | Hospitalist Progress Note ---
Date of Service December 11, 2019 Assessment & Plan (1) Acute respiratory failure with hypoxia: admitted with acute resp failure with Hypoxia due to saddle emboli of pulmonary artery associated with cor pulmonale CT chest with contrast on admission : Extensive bilateral pulmonary emboli including a saddle embolus and extensive right sided heart strain This is a 79-year-old female with baseline advanced Alzheimer's dementia, nonverbal, bed/wheelchair bound, history of traumatic subdural hematoma status post craniotomy in 2016, sent form jail [facility] to ER after having a syncope episode In ER pt found to be tachycardic, hypoxic 82% on RA, tachypneic with RR: 24. CTA chest finding of extensive bilateral pulmonary emboli including a saddle embolus as outlined above ER physician discussed CT chest finding with pt's -who is was present at bedside : declined TPA or other invasive procedures(plans for to higher level of care for embolectomy)-due to risks involved, She has POLST which also states no invasive procedure, no heroic measures Baseline patient is bedbound, nonverbal with advanced dementia- is not willing to put her through high risk procedure ,as out come of the treatment may not be favorable family aware of pt's poor prognosis. Pt DNR/DNI. pt was treated with IV heparin in ER and on the floor Iv heparin D/juana goal of care transitioned to comfort /hospice only Type 2 Non-ST elevated WV: Troponin elevation noted in ER with T wave inversions in EKG - possible type II non-ST elevated WV/demand ischemia in the setting of extensive bilateral PE saddle emboli with cor pulmonale, hypoxia with acute respiratory failure family defer any further diagnostic procedure or treatment very poor prognosis On comfort care /hospice now Palliative care consulted appreciate input DNR/DNI disposition : if pt remains clinically stable next 24-48hrs with no or minimum symptom requiring active treatment ( IV morphine ) plan is to return back to [facility] with Hospice care (2) Alzheimer's disease: reports pt seems to be at baseline mental status Patient is DNR/DNI Care changed to hospice comfort care Pt , Marco Costa. Pt daughter, Zahira Arana. Admission and Anticipated Discharge Date Admission Date: December 10, 2019 Subjective pt remains minimally responsive opening eyes with voice daughter present at bedside transitioned from NRB mask to 3 L via NC spo2 > 95% , pt appears to be comfortable Family -Pt;s and daughter /son in law all in agreement to proceed with comfort care /hospice for the pt IV heparin d/juana Dc all lab draw including vitals check , d/c tele on IV morphine q1 hrs PRN for SOB /pain or discomfort pt appears not have any symptoms now with any decline in status -family is ok with IV morphine gtt if needed to provide pt comfort Physical Exam Physical Exam: MINIMUM EXAM DUE TO COMFORT CARE STATUS : Gen : elderly female , quite ill appearing , baseline dementia , awake now , unable to verbalize any discomfort as per Family /Daughter -present at bedside -this is Pts approx baseline mental status HEENT: non icteric sclera ,very dry oral mucosa LUNGS: no obvious resp distress noted , no tachypnia , tachycardia , no audible wheeze comfortable with current setting of supplemental o2 ( on 3L vial NC ) -pt was not on home o2 prior to admission Results & Data Results & Data ([facility]) Vital Signs (Past 12 Hours) Vital Signs Temp Pulse Pulse Resp BP Pulse Ox 12/11/19 07:42 36.4 C L 71 20 123/86 97 12/11/19 01:01 89
--- NOTE | 2019-12-11 13:10 | Palliative Care Consultation ---
Date of Consultation December 11, 2019 Assessment & Plan (1) Goals of care, counseling/discussion: -79 year old female patient with PMH PMH Alzheimer dementia, depression, anxiety, h/o subdural hematoma after fall s/p craniotomy in 2016 presented to ED last evening from [facility] for reported syncope. Patient has advanced dementia at baseline-- does not recognize family, wheelchair bound, dependent for all ADLs. Patient reportedly had a loss of consciousness while she was being bathed. Staff then thought she had a facial droop, so she was sent to the ED. In ED, patient noted to be tachycardic and hypoxic with O2 sat 82% on room air. CTA chest was performed which showed extensive bilateral pulmonary emboli and evidence of significant right heart strain. Patient has no known history of blood clots. CTA head and neck did not show any significant stenosis or occlusion. Patient was started on heparin IV. Troponin also slightly elevated. After admitting provider discussed with family, decided no heroic or invasive measures. Patient is a DNR/DNI, family would like to focus on comfort. Palliative care is consulted to discuss goals of care. -Spoke with patient's nurse this morning. She is comfortable, awake but mostly nonverbal. is at the bedside visiting. -Patient has FAST score of 7c, indicating severe dementia. Patient meets hospice criteria based on this alone. Now has extensive bilateral PEs. Her oyxgen saturation and comfort level may improve with continued heparin use, however she is likely not a good long-term anticoagulation candidate due to fall risk and history of subdural hematoma. -Will speak with family regarding their goals of care. Would be reasonable to contine heparin and supportive care for another 24-48 hours. If discomfort develops, family may opt to transition to comfort measures only while patient is in the hospital. Either way I think it would be reasonable toconsider comfort measures only, or even hospice care, once patient is back to the [facility]. -PPS 30%. -Patient was seen and examined by palliative physician this afternoon. Daughter was at bedside. Family again reiterates their wish to keep patient comfortable. They do feel that patient is much more comfortable after being admitted and being on the heparin-- they would like to continue heparin gtt for another couple days and watch. Plan will likely be for patinet to return to the [facility] for comfort measures, which the family is in agreement with. (2) Acute respiratory failure with hypoxia: (3) Pulmonary embolism: Acute cor pulmonale presence: with acute cor pulmonale Ch ronicity: acute Pulmonary embolism type: saddle Qualified Code(s): I26.02 - Saddle embolus of pulmonary artery with acute cor pulmonale (4) Alzheimer's disease: Supervising Physician Co-Signing Physician Notes Chart reviewed, patient seen and examined. Patient's daughter at bedside. Collaborated with attending physician as well as EM Nugent Daughter reports that patient's work of breathing has markedly improved this a.m.- Patient appears comfortable, did not awaken to voice or touch during exam. PE: Patient appears comfortable, no acute distress HEENT: No excess oral secretions Respiratory: Unlabored, good air movement bilaterally CV: Regular rate Abdomen: Soft, diminished bowel sounds Neuro: Did not awaken to voice or touch on exam Agree with above note, assessment and plan as per EM Nugent -we will continue to follow. Family agreeable to hospice referral, plan is to have patient return to the [facility] on comfort measures only when she is stable. History of Present Illness Attending Physician: Anna Quiñones MD History of Present Illness This 79 year old female patient with PMH PMH Alzheimer dementia, depression, anxiety, h/o subdural hematoma after fall s/p craniotomy in 2016 presented to ED last evening from [facility] for reported syncope. Patient has advanced dementia at baseline-- does not recognize family, wheelchair bound, dependent for all ADLs. Patient reportedly had a loss of consciousness while she was being bathed. Staff then thought she had a facial droop, so she was sent to the ED. In ED, patient noted to be tachycardic and hypoxic with O2 sat 82% on room air. CTA chest was performed which showed extensive bilateral pulmonary emboli and evidence of significant right heart strain. Patient has no known history of blood clots. CTA head and neck did not show any significant stenosis or occlusion. Patient was started on heparin IV. Troponin also slightly elevated. After admitting provider discussed with family, decided no heroic or invasive measures. Patient is a DNR/DNI, family would like to focus on comfort. Palliative care is consulted to discuss goals of care. Thank you kindly for this consult. Palliative care team will follow as needed. Allergies Allergy/AdvReac Type Severity Reaction Status Date / Time Penicillins Allergy Unknown . Verified 12/10/19 15:40 tramadol AdvReac Intermediate UPSET Verified 12/10/19 15:40 STOMACH AND VOMITING donepezil AdvReac Unknown agitation Verified 12/10/19 15:40 / delirium memantine AdvReac Unknown delirium Verified 12/10/19 15:40 Home Medications Home Medications Medication Instructions Recorded Confirmed Type acetaminophen 650 mg PO Q6H PRN MDD 3 GMS 12/10/19 12/10/19 History APAP/24 HOURS bisacodyl [Dulcolax (bisacodyl)] 10 mg ND DAILY PRN 12/10/19 12/10/19 History chlorhexidine gluconate [Peridex] 5 ml BUCCAL BID 12/10/19 12/10/19 History cholecalciferol (vitamin D3) 5,000 unit PO DAILY 12/10/19 12/10/19 History [Vitamin D3] magnesium hydroxide [Milk Of 10 ml PO DAILY PRN 12/10/19 12/10/19 History Magnesia Concentrated] mineral oil [Fleet Mineral Oil] 118 ml ND DAILY PRN 12/10/19 12/10/19 History zsehqzsa-dzub-PS-calcium-mins 1 tab PO DAILY 12/10/19 12/10/19 History [Therapeutic-M] omeprazole 20 mg PO Q2D 12/10/19 12/10/19 History polyethylene glycol 3350 17 g PO Q24H PRN 12/10/19 12/10/19 History potassium chloride 20 meq PO DAILY 12/10/19 12/10/19 History sertraline 50 mg PO DAILY 12/10/19 12/10/19 History Patient History Medical History (Updated 12/11/19 @ 13:08 by EM Cotton) Alzheimer's disease (Chronic) Anxiety Depression (Chronic) Subdural hematoma, post-traumatic Surgical History (Updated 12/10/19 @ 18:03 by Negar Núñez PA-C) History of appendectomy (Chronic Unknown) "incidental " History of craniotomy Family History (Updated 12/10/19 @ 18:06 by Negar Núñez PA-C) Other Family history non-contributory Social History (Updated 12/10/19 @ 18:07 by Negar Núñez PA-C) Preferred Language: Ug[place]an Communication Ability: Impaired Supervisor Engraving Required: No Beliefs That Will Affect Care: None marital status: Single Current Living Situation: Shelter Smoking Status: Never smoker Hx Alcohol Use: No Hx Substance Use: No Results & Data Vital Signs (Past 12 Hours) Vital Signs Temp Pulse Pulse Resp BP Pulse Ox 12/11/19 07:42 36.4 C L 71 20 123/86 97 12/11/19 01:01 89 Coding Level of Care Code 38552 Inpt Consult Level 3 Diagnoses Goals of care, counseling/discussion Z71.89 Acute respiratory failure with hypoxia J96.01 Pulmonary embolism I26.02 Acute cor pulmonale presence: with acute cor pulmonale Chronicity: acute Pulmonary embolism type: saddle Alzheimer's disease G30.9; F02.80 Time Spent (min) 80 Time Spent Midlevel A total of 50 minutes was spent by this LEAD INGOT MOLDER reviewing chart, speaking to nursing staff, speaking with case management, and discussing with physicians about plan and goals of care. Attending Spent 30 minutes in addition to the 50 minutes spent by PLUNGER SCOOP OPERATOR for total of 80 minutes with greater than 50% of time spent at bedside and speaking with family regarding goals of care as well as developing a plan of care.
[2019-12-11] MEDS: MoRPHine SULFATE 2 MG/ML CARP IV PRN (18:28)
[2019-12-12] MEDS: MoRPHine SULFATE 2 MG/ML CARP IV PRN ×3 (06:07→17:45)
[2019-12-12] MEDS ORDERED: MoRPHine SULFATE 10 MG/0.5 ML UDP PO PRN (09:14)
[2019-12-12] MEDS ORDERED: LORazepam 0.5 MG TAB SL PRN (09:14)
--- NOTE | 2019-12-12 13:57 | Palliative Care Progress Note ---
Date of Service December 12, 2019 Assessment & Plan (1) Goals of care, counseling/discussion: -79 year old female patient with PMH PMH Alzheimer dementia, depression, anxiety, h/o subdural hematoma after fall s/p craniotomy in 2016 presented to ED last evening from [facility] for reported syncope. Patient has advanced dementia at baseline-- does not recognize family, wheelchair bound, dependent for all ADLs. Patient reportedly had a loss of consciousness while she was being bathed. Staff then thought she had a facial droop, so she was sent to the ED. In ED, patient noted to be tachycardic and hypoxic with O2 sat 82% on room air. CTA chest was performed which showed extensive bilateral pulmonary emboli and evidence of significant right heart strain. Patient has no known history of blood clots. CTA head and neck did not show any significant stenosis or occlusion. Patient was started on heparin IV. Troponin also slightly elevated. After admitting provider discussed with family, decided no heroic or invasive measures. Patient is a DNR/DNI, family would like to focus on comfort. P alliative care is consulted to discuss goals of care. -Spoke with patient's and daughter this afternoon, she appears comfortable. Respirations are unlabored, adequate saturation on O2 at 3 L -Patient has FAST score of 7c, indicating severe dementia. Patient meets hospice criteria based on this alone. Now has extensive bilateral PEs. Her oyxgen saturation and comfort level may improve with continued heparin use, however she is likely not a good long-term anticoagulation candidate due to fall risk and history of subdural hematoma. -Family's goals of care are for comfort-plan to return to the [facility] this evening with [facility] Hosp[facility] services. -PPS 20%. (2) Acute respiratory failure with hypoxia: (3) Pulmonary embolism: (4) Alzheimer's disease: Subjective Patient did not respond to voice or touch, patient's and daughter at bedside. Family reports patient has been restless at times-she did require 3 doses of PRN IV morphine in the past 24 hours, appears comfortable on exam. Answered family's questions and addressed their concerns. Patient is for transfer back to the [facility] under hospice care with [facility]. Review of Systems Review of Systems: Unobtainable due to cognitive status Physical Exam Physical Exam: PE: Patient appears comfortable, NAD Respirations: Unlabored, O2 at 3 L PRN for comfort CV: Regular rate Abdomen: Not distended Extremities: Warm to touch : Dupont in place Neuro: Unresponsive to voice or touch Results & Data Vital Signs (Past 12 Hours) Vital Signs Temp Pulse Resp BP Pulse Ox 12/12/19 13:46 97.5 F L 71 20 123/86 97 PG Care Time/CCT Total # of Minutes Spent Total Time Spent with Patient: Total time spent 25 minutes with greater than 50% of the time at bedside answering family's questions and addressing their concerns. Coding Level of Care Code 57894 Subseq Hosp Care Lvl 2 Diagnoses Goals of care, counseling/discussion Z71.89 Acute respiratory failure with hypoxia J96.01 Pulmonary embolism I26.02 Acute cor pulmonale presence: with acute cor pulmonale Chronicity: acute Pulmonary embolism type: saddle Alzheimer's disease G30.9; F02.80 Time Spent (min) 25 (1) Pulmonary embolism Acute cor pulmonale presence: with acute cor pulmonale Chronicity: acute Pulmonary embolism type: saddle Qualified Code(s): I26.02 - Saddle embolus of pulmonary artery with acute cor pulmonale
--- NOTE | 2019-12-12 18:26 | Discharge Summary ---
Date of Service December 12, 2019 Admission HPI Per Admitting Provider Pt is 79 y/o F with PMH Alzheimer dementia, depression, anxiety, h/o subdural hematoma after fall s/p craniotomy in 2016 presented to ER from [facility] for reported syncope. History obtained from ER staff and patient's secondary to patient's mental status. Patient's reports patient significant dementia and typically does not recognize him. Reports patient is primarily wheelchair bound. It is reported by staff that pt was being bathed today when she became pale and had syncopal event. It was also noted pt to be hypoxic. Staff had concern pt may have left-sided facial droop and was transported to ER via EMS. No h/o lung disorder or oxygen requirement in past. No known h/o DVT or PE in past. No known other recent injury/trauma, no recent procedures. In ER pt found to be tachycardic, hypoxic 82% on RA, tachypneic with RR: 24. She was found to have Extensive bilateral pulmonary emboli including a saddle embolus and extensive right-sided heart strain on CTA chest. ER discussed with pt's who denies TPA or other invasive procedures. Principal Diagnosis BILATERAL EXTENSIVE PULMONARY EMBOLI /SADDLE EMBOLI/COR PULMONALE COMFORT CARE /HOSPICE Discharge Exam minimum exam for Comfort care GEN : lathergic , no sign of distress Resp: no sign of resp distress , has been off supplemental 02 Neuro: minimally responsive Discharge Data Allergies Allergy/AdvReac Type Severity Reaction Status Date / Time Penicillins Allergy Unknown . Verified 12/10/19 15:40 tramadol AdvReac Intermediate UPSET Verified 12/10/19 15:40 STOMACH AND VOMITING donepezil AdvReac Unknown agitation Verified 12/10/19 15:40 / delirium memantine AdvReac Unknown delirium Verified 12/10/19 15:40 Consultations 12/10/19 17:02 ED Decision to Admit Stat 12/10/19 18:14 Consult Case Management - Discharge Planning Routine 12/10/19 18:48 Consult Case Management - Discharge Planning Routine Consult Palliative Care Routine Ordered Studies 12/10/19 14:59 CT head/brain wo con Stat 12/10/19 15:00 CT angio chest PE protocol Stat CT angio head w con Stat CT angio neck with con Stat Hospital Course (1) Acute respiratory failure with hypoxia: admitted with acute resp failure with Hypoxia due to saddle emboli of pulmonary artery associated with cor pulmonale CT chest with contrast on admission : Extensive bilateral pulmonary emboli including a saddle embolus and extensive right sided heart strain This is a 79-year-old female with baseline advanced Alzheimer's dementia, nonverbal, bed/wheelchair bound, history of traumatic subdural hematoma status post craniotomy in 2016, sent form care home [facility] to ER after having a syncope episode In ER pt found to be tachycardic, hypoxic 82% on RA, tachypneic with RR: 24. CTA chest finding of extensive bilateral pulmonary emboli including a saddle embolus as outlined above ER physician discussed CT chest finding with pt's -who is was present at bedside : declined TPA or other invasive procedures(plans for to higher level of care for embolectomy)-due to risks involved, She has POLST which also states no invasive procedure, no heroic measures Baseline patient is bedbound, nonverbal with advanced dementia- is not willing to put her through high risk procedure ,as out come of the treatment may not be favorable family aware of pt's poor prognosis. Pt DNR/DNI. pt was treated with IV heparin in ER and on the floor Iv heparin D/juana goal of care transitioned to comfort /hospice only has been stable so far , has not required IV morphine changed to PO roxanol PRN For SOB , pain or discomfort pt is discharged back to care home with hospice care Type 2 Non-ST elevated WA: Troponin elevation noted in ER with T wave inversions in EKG - possible type II non-ST elevated WA/demand ischemia in the setting of extensive bilateral PE saddle emboli with cor pulmonale, hypoxia with acute respiratory failure family defer any further diagnostic procedure or treatment very poor prognosis On comfort care /hospice now Palliative care consulted appreciate input DNR/DNI disposition : pt is discharged back to [facility] with Hospice care (2) Alzheimer's disease: reports pt seems to be at baseline mental status Patient is DNR/DNI Care changed to hospice comfort care Pt , Marco Igor. Pt daughter, Zahira Arana. Total Time Total Time Spent Total Time Spent (In Minutes): 30 mins Total Time Includes: Examination of the Patient, Discharge Planning and Med ication Reconciliation Discharge Plan Discharge Items Patient Disposition: Trans Resident Long-Term Care Reason For Visit: SYNCOPE,SOB Discharge Diagnosis: BILATERAL EXTENSIVE PULMONARY EMBOLI /SADDLE EMBOLI/COR PULMONALE COMFORT CARE /HOSPICE Condition on Discharge: Serious Activity: As commented below Activity Comment: BEDREST Non-emergency contact: Primary Care Provider Call non-emergency contact if: you have any medication questions Follow-up/Referrals: Yue Byrd [Primary Care Provider] - Diet: Regular Diet Texture: Mechanical soft (ground) Addtl Attending Provider Instructions: Continue comfort care/hospice at care home Pending Studies at Discharge: No Stand-Alone [facility] Patient informed of condition?: Yes DNR: Yes Discharge Level of Care: Other Communicable Disease: No Discharge Prognosis: Deteriorating Lines: None Urinary Catheter: Yes Medications and DC Order Prescriptions: New morphine concentrate 100 mg/5 mL (20 mg/mL) Solution 0.5 ml PO Q4 PRN (Reason: pain) Qty: 30 RF: 0 lorazepam 0.5 mg Tablet 0.5 mg sublingual Q6H PRN (Reason: Anxiety) Qty: 20 RF: 0 atropine 1 % Drops 4 drp sublingual Q1H PRN (Reason: increased secretion) Qty: 10 RF: 0 Discontinued acetaminophen 325 mg Tablet 650 mg PO Q6H MDD 3 GMS APAP/24 HOURS PRN (Reason: Fever Or Pain) RF: 0 potassium chloride 20 mEq/15 mL liquid 20 meq PO DAILY RF: 0 bisacodyl [Dulcolax (bisacodyl)] 10 mg Suppository 10 mg CA DAILY PRN (Reason: Constipation) RF: 0 omeprazole 20 mg capsule,delayed release(DR/EC) 20 mg PO Q2D RF: 0 sertraline 50 mg tablet 50 mg PO DAILY RF: 0 mineral oil [Fleet Mineral Oil] Enema 118 ml CA DAILY PRN (Reason: Constipation) RF: 0 polyethylene glycol 3350 17 gram/dose Powder 17 g PO Q24H PRN (Reason: Constipation) RF: 0 chlorhexidine gluconate [Peridex] 0.12 % Mouthwash 5 ml BUCCAL BID RF: 0 magnesium hydroxide [Milk Of Magnesia Concentrated] 2,400 mg/10 mL Suspension 10 ml PO DAILY PRN (Reason: Constipation) RF: 0 Therapeutic-M 9 mg iron-400 mcg Tablet 1 tab PO DAILY RF: 0 cholecalciferol (vitamin D3) [Vitamin D3] 125 mcg (5,000 unit) Tablet 5,000 unit PO DAILY RF: 0 Discharge Orders: Discharge Order (Routine); Ordered 12/12/19 Ordered By: Anna Quiñones Admission Data Admit Date/Time: 12/10/19 17:33 Attending Provider: Anna Quiñones Admit Provider: Anna Quiñones Primary Care Provider: Yue Byrd Other Providers: Anna Quiñones ; Petty Mejias Other Interventions: Discharge Summary Assessment (RN) Last Done: 12/12/19 13:46 DC Date/Time DO NOT enter until pt leaves facility: 12/12/19 20:09
== END 2019-12-12 20:09 | DRG 175 ==
LOC: ED 14:38 → 2N 17:33